=== PATIENT | male | born 1975 | race Caucasian/White ===

== ENCOUNTER 2018-03-04 11:42 | Emergency (ER) | payer BC ==
[~2018-03-04 11:42] MED LIST: Sodium Chloride Irrig Solution 250 ML BOT ONE
[2018-03-04] MEDS ORDERED: Lidocaine 1% w/Epinephrine 1:100K 20 ML VIAL ONE (11:58)
[2018-03-04] MEDS ORDERED: Bacitracin Zinc 1 Packet ONE (12:31)
[2018-03-04] MEDS ORDERED: Adacel (T-DAP) 0.5 ML VIAL ONE (12:40)
== END 2018-03-04 12:55 | disposition home or self-care (01) ==
LOC: MADERS 11:42
DX: S01.01XA Laceration without foreign body of scalp, initial encounter (principal); G47.30 Sleep apnea, unspecified; K21.9 Gastro-esophageal reflux disease without esophagitis; E78.5 Hyperlipidemia, unspecified; F90.9 Attention-deficit hyperactivity disorder, unspecified type; Z23 Encounter for immunization; Z79.899 Other long term (current) drug therapy; W20.8XXA Other cause of strike by thrown, projected or falling object, initial encounter
CPT/HCPCS: 12002; 90471; 90715; J2001